=== PATIENT | female | born 1970 | race American Indian/Alaskan Native ===

== ENCOUNTER 2020-09-24 10:03 | Outpatient (CLI) | payer BC | END 2020-09-24 20:36 | disposition home or self-care (01) | LOC: RAD 10:03 | PROVIDERS: ATTEND Nurse Practitioner Family | DX: R10.812 Left upper quadrant abdominal tenderness (principal); R10.13 Epigastric pain ==

== ENCOUNTER 2021-09-08 11:03 | Outpatient (CLI) | payer BC | END 2021-09-08 19:01 | disposition home or self-care (01) | LOC: RAD 11:03 | PROVIDERS: ATTEND Nurse Practitioner Family | DX: Z01.818 Encounter for other preprocedural examination (principal) ==

== ENCOUNTER 2021-10-22 09:17 | Outpatient (CLI) | payer BC | END 2021-10-22 19:35 | disposition home or self-care (01) | LOC: RAD 09:17 | PROVIDERS: ATTEND Nurse Practitioner Family | DX: M96.1 Postlaminectomy syndrome, not elsewhere classified (principal) ==

== ENCOUNTER 2022-07-14 15:28 | Outpatient (CLI) | payer OTHER | END 2022-07-14 20:54 | disposition home or self-care (01) | LOC: CT 15:28 | PROVIDERS: ATTEND Nurse Practitioner Family | DX: R10.812 Left upper quadrant abdominal tenderness (principal) ==